=== PATIENT | male | born 1935 | race Caucasian/White ===

== ENCOUNTER 2018-01-07 17:26 | Inpatient (IN) | payer MEDICARE, OTHER ==
[~2018-01-07] VITALS: Ht 177.8 cm; Wt 60.9 kg
[~2018-01-07 17:26] MED LIST: ACE325 PO; AGGRENOX PO; CLON-352 PO; HCTZ25 PO; HYD20I IV; HYD25 PO; INSU100I SQ; INSU100V26 SC; LANI SQ; LEVO50TA80 PO; LOS50 PO; METO200T33 PO; PENI-22 PO; QUE25 PO; TAM4 PO
--- NOTE | 2018-01-07 17:38 | ER Report ---
History and Physical Time Seen By MD: 17:38 HPI/ROS CHIEF COMPLAINT: Fall HISTORY OF PRESENT ILLNESS: 82-year-old male patient presents to emergency room with complaint of a fall. Patient states that he had gotten up to go look out the door at the storm. He states that while he was walking back to his chair he is legs gave out underneath him. Patient states that he did not hurt himself and denies having any pain at this time. Patient states that he has felt weak over the last few days. He has had diarrhea today. Denies having any abdominal pain at this time. He has not taken any medication for this. He denies having any fevers, chills. He denies having any nausea. REVIEW OF SYSTEMS: Respiratory: No cough, no dyspnea. Cardiovascular: No chest pain, no palpitations. Gastrointestinal: No vomiting, no abdominal pain. Musculoskeletal: No back pain. Allergies: Coded Allergies: No Known Allergies (Verified Allergy, Mild, 08/29/10) Home Meds Reported Medications Lisinopril (LISINOPRIL) 20 Mg Tablet, 20 MG PO QDAY, TAB 01/07/18 Hydrochlorothiazide (HYDROCHLOROTHIAZIDE) 25 Mg Tablet, 1 TAB PO QDAY, TAB 01/07/18 Amlodipine Besylate (AMLODIPINE BESYLATE) 5 Mg Tablet, 1 TAB PO QDAY, TAB 01/07/18 Oxybutynin Chloride (OXYBUTYNIN CHLORIDE ER) 5 Mg Tab.er.24, 5 MG PO QDAY, TAB.SA 01/07/18 Insulin Glargine,Hum.rec.anlog (Lantus Solostar) 3 Ml Insuln.pen, 18 UNITS SQ QDAY, 0 Refills 08/13/11 Levothyroxine Sodium (Levothyroxine Sodium) 50 Mcg Tablet, 75 MCG PO QD, 0 Refills 08/13/11 Clonidine Hcl/Chlorthalidone (Clorpres 0.3/15 Tablet) 1 Tab Tablet, 2 TAB PO BID , 0 Refills 08/13/11 Acetaminophen (Tylenol) 325 Mg Tab, 650 MG PO Q4-6H Y, 0 Refills NEEDED 08/13/11 Tamsulosin Hcl (Flomax) 0.4 Mg Cap, 0.4 MG PO QDAY, 0 Refills 08/13/11 Dipyridamole/Aspirin (Aggrenox) 1 Ea Capcr, 1 CAP PO BID, 0 Refills 08/13/11 Discontinued Reported Medications Aspirin (ASPIR 81) 81 Mg Tablet.dr, 25 MG PO QDAY, TAB 01/07/18 Hydrochlorothiazide (Hydrochlorothiazide) 25 Mg Tab, 50 MG PO BID, 0 Refills 08/13/11 Past Medical/Surgical History Patient has a past medical history of CVA, hypertension, inguinal hernia, prostate problems, arthritis, hard of hearing, diabetes, hypothyroidism. Patient has surgical history of hernia repair, hip replacement, removal of cataracts. Patient has a family medical history of diabetes. Reviewed Nurses Notes: Yes Hx Smoking: No Hx Substance Use Disorder: No Hx Alcohol Use: No Constitutional Vital Sign - Last 24 Hours 01/07/18 01/07/18 01/07/18 01/07/18 17:47 17:48 17:54 17:56 Pulse 99 104 Resp 18 B/P (MAP) 122/105 (111) 122/105 102/70 (81) Pulse Ox 88 90 O2 Delivery Room Air 01/07/18 01/07/18 01/07/18 01/07/18 18:11 18:26 18:41 18:56 Pulse 92 88 95 90 Resp 31 14 Pulse Ox 87 88 90 88 01/07/18 01/07/18 01/07/18 01/07/18 19:11 19:16 19:31 19:35 Pulse 88 ??? 87 Resp 16 B/P (MAP) 113/75 (88) Pulse Ox 88 89 01/07/18 01/07/18 01/07/18 01/07/18 19:46 20:00 20:01 20:16 Pulse 87 86 95 Resp 14 16 23 B/P (MAP) 111/62 (78) Pulse Ox 90 87 93 Intake and Output 01/07/18 01/07/18 01/08/18 14:59 22:59 06:59 Output Total 20 ml Balance -20 ml Physical Exam General Appearance: The patient is alert, has no immediate need for airway protection and no current signs of toxicity. Respiratory: Chest is non tender, lungs are clear to auscultation. Cardiac: regular rate and rhythm Gastrointestinal: Abdomen is soft and slightly tender in left upper quadrant, no masses, bowel sounds normal. Musculoskeletal: Neck: Neck is supple and non tender. Extremities have full range of motion and are non tender. Skin: No rashes or lesions. DIFFERENTIAL DIAGNOSIS: After history and physical exam differential diagnosis was considered for abdominal pain including but not limited to appendicitis, cholecystitis, gastritis and urinary tract infection. Also included in the differential is intracranial hemorrhage, skull fracture. Medical Decision Making Data Points Result Diagram: 01/07/18 0000 01/07/18 0000 Laboratory Hematology Test 01/07/18 00:00 01/07/18 18:56 Red Blood Count 5.46 M/uL (4.00-5.60) Mean Corpuscular Volume 93.7 fL (80.0-96.0) Mean Corpuscular Hemoglobin 31.8 pg (26.0-33.0) Mean Corpuscular Hemoglobin Concent 33.9 g/dL (32.0-36.0) Red Cell Distribution Width 13.8 % (11.5-14.5) Mean Platelet Volume 9.0 fL (7.2-11.1) Neutrophils (%) (Auto) 91.9 % (39.4-72.5) Lymphocytes (%) (Auto) 1.6 % (17.6-49.6) Monocytes (%) (Auto) 6.3 % (4.1-12.4) Eosinophils (%) (Auto) 0.0 % (0.4-6.7) Basophils (%) (Auto) 0.2 % (0.3-1.4) Nucleated RBC Relative Count (auto) 0.0 /100WBC Neutrophils # (Auto) 20.8 K/uL (2.0-7.4) Lymphocytes # (Auto) 0.4 K/uL (1.3-3.6) Monocytes # (Auto) 1.4 K/uL (0.3-1.0) Eosinophils # (Auto) 0.0 K/uL (0.0-0.5) Basophils # (Auto) 0.1 K/uL (0.0-0.1) Nucleated RBC Absolute Count (auto) 0.00 K/uL Peripheral Blood Smear Yes Y/N Stool Occult Blood (IFOB) Positive (NEGATIVE) Stool Leukocytes, Qualitative Positive Sodium Level 141 mmol/L (137-145) Potassium Level 4.1 mmol/L (3.5-5.0) Chloride Level 99 mmol/L (98-107) Carbon Dioxide Level 21 mmol/L (22-30) Blood Urea Nitrogen 50 mg/dl (9-21) Creatinine 2.10 mg/dl (0.66-1.25) Glomerular Filtration Rate Calc 30.4 Random Glucose 155 mg/dl (75-110) Calcium Level 9.6 mg/dl (8.4-10.2) Total Bilirubin 1.7 mg/dl (0.2-1.3) Aspartate Amino Transf (AST/SGOT) 36 U/L (0-35) Alanine Aminotransferase (ALT/SGPT) 11 U/L (0-56) Alkaline Phosphatase 76 U/L (0-126) Troponin I 0.067 ng/ml Total Protein 7.8 gm/dl (6.3-8.2) Albumin 3.7 g/dl (3.5-5.0) Amylase Level 72 U/L (0-110) Lipase 46 U/L (23-300) Clostridium Difficile Toxin A & B Negative Clostridium difficile Antigen Negative Urine Color Red Urine Clarity Turbid Urine pH 5.0 pH (4.8-9.5) Urine Specific [place] 1.023 Urine Protein 100 mg/dL (NEGATIVE) Urine Glucose (UA) 50 mg/dL (NEGATIVE) Urine Ketones Trace mg/dL (NEGATIVE) Urine Blood Small (NEGATIVE) Urine Nitrite Negative (NEGATIVE) Urine Bilirubin Small (NEGATIVE) Urine Urobilinogen 4.0 mg/dL (0.2-1.9) Urine Leukocyte Esterase Small (NEGATIVE) Urine RBC 33 /HPF (0-2/HPF) Urine WBC 470 /HPF (0-5/HPF) Urine WBC Clumps Many /HPF Urine Squamous Epithelial Cells Many /LPF (NONE-FEW) Urine Renal Epithelial Cells Many /LPF (NONE-FEW) Urine Bacteria Negative /HPF (NONE-FEW) Urine Mucus Few /HPF (NONE-FEW) Chemistry Test 01/07/18 00:00 01/07/18 18:56 White Blood Count 22.6 k/uL (4.5-11.0) Red Blood Count 5.46 M/uL (4.00-5.60) Hemoglobin 17.4 g/dL (14.0-18.0) Hematocrit 51.2 % (42.0-52.0) Mean Corpuscular Volume 93.7 fL (80.0-96.0) Mean Corpuscular Hemoglobin 31.8 pg (26.0-33.0) Mean Corpuscular Hemoglobin Concent 33.9 g/dL (32.0-36.0) Red Cell Distribution Width 13.8 % (11.5-14.5) Platelet Count 288 K/uL (150-450) Mean Platelet Volume 9.0 fL (7.2-11.1) Neutrophils (%) (Auto) 91.9 % (39.4-72.5) Lymphocytes (%) (Auto) 1.6 % (17.6-49.6) Monocytes (%) (Auto) 6.3 % (4.1-12.4) Eosinophils (%) (Auto) 0.0 % (0.4-6.7) Basophils (%) (Auto) 0.2 % (0.3-1.4) Nucleated RBC Relative Count (auto) 0.0 /100WBC Neutrophils # (Auto) 20.8 K/uL (2.0-7.4) Lymphocytes # (Auto) 0.4 K/uL (1.3-3.6) Monocytes # (Auto) 1.4 K/uL (0.3-1.0) Eosinophils # (Auto) 0.0 K/uL (0.0-0.5) Basophils # (Auto) 0.1 K/uL (0.0-0.1) Nucleated RBC Absolute Count (auto) 0.00 K/uL Peripheral Blood Smear Yes Y/N Stool Occult Blood (IFOB) Positive (NEGATIVE) Stool Leukocytes, Qualitative Positive Glomerular Filtration Rate Calc 30.4 Calcium Level 9.6 mg/dl (8.4-10.2) Total Bilirubin 1.7 mg/dl (0.2-1.3) Aspartate Amino Transf (AST/SGOT) 36 U/L (0-35) Alanine Aminotransferase (ALT/SGPT) 11 U/L (0-56) Alkaline Phosphatase 76 U/L (0-126) Troponin I 0.067 ng/ml Total Protein 7.8 gm/dl (6.3-8.2) Albumin 3.7 g/dl (3.5-5.0) Amylase Level 72 U/L (0-110) Lipase 46 U/L (23-300) Clostridium Difficile Toxin A & B Negative Clostridium difficile Antigen Negative Urine Color Red Urine Clarity Turbid Urine pH 5.0 pH (4.8-9.5) Urine Specific [place] 1.023 Urine Protein 100 mg/dL (NEGATIVE) Urine Glucose (UA) 50 mg/dL (NEGATIVE) Urine Ketones Trace mg/dL (NEGATIVE) Urine Blood Small (NEGATIVE) Urine Nitrite Negative (NEGATIVE) Urine Bilirubin Small (NEGATIVE) Urine Urobilinogen 4.0 mg/dL (0.2-1.9) Urine Leukocyte Esterase Small (NEGATIVE) Urine RBC 33 /HPF (0-2/HPF) Urine WBC 470 /HPF (0-5/HPF) Urine WBC Clumps Many /HPF Urine Squamous Epithelial Cells Many /LPF (NONE-FEW) Urine Renal Epithelial Cells Many /LPF (NONE-FEW) Urine Bacteria Negative /HPF (NONE-FEW) Urine Mucus Few /HPF (NONE-FEW) Urinalysis Test 01/07/18 18:56 Urine Color Red Urine Clarity Turbid Urine pH 5.0 pH (4.8-9.5) Urine Specific [place] 1.023 Urine Protein 100 mg/dL (NEGATIVE) Urine Glucose (UA) 50 mg/dL (NEGATIVE) Urine Ketones Trace mg/dL (NEGATIVE) Urine Blood Small (NEGATIVE) Urine Nitrite Negative (NEGATIVE) Urine Bilirubin Small (NEGATIVE) Urine Urobilinogen 4.0 mg/dL (0.2-1.9) Urine Leukocyte Esterase Small (NEGATIVE) Urine RBC 33 /HPF (0-2/HPF) Urine WBC 470 /HPF (0-5/HPF) Urine WBC Clumps Many /HPF Urine Squamous Epithelial Cells Many /LPF (NONE-FEW) Urine Renal Epithelial Cells Many /LPF (NONE-FEW) Urine Bacteria Negative /HPF (NONE-FEW) Urine Mucus Few /HPF (NONE-FEW) EKG/Imaging EKG Interpretation 12 lead EKG: Rhythm: normal sinus rhythm with ventricular rate of 94 bpm [place]: Left axis deviation QRS: normal ST segments: normal Imaging CT abdomen and pelvis without contrast Indication: Fall. Lower abdominal pain. Comparison: None Available. Technique: Axial CT images are obtained through the abdomen and pelvis. Reformatted coronal and sagittal images were reviewed. IV contrast was not administered. One of the following dose optimization techniques was utilized in the performance of this exam: automated exposure control; adjustment of the mA and/ or kV according to the patient's size; or use of an iterative reconstruction technique. Specific details can be referenced in the facility's radiology CT exam operational policy. Findings: Lower lung olivas: Mild dependent atelectasis and scarring. Evaluation of the solid organs of the abdomen is limited without IV contrast. Liver: The lateral liver does show a 1.5 cm hypodense lesion with Hounsfield of 20. Liver shows no other discrete focal abnormality. Biliary: Gallbladder appears unremarkable as well as the intra and extra hepatic biliary system. Pancreas: No focal abnormality. Spleen: Calcific granuloma without other focal normality. Adrenal glands: Unremarkable. Kidneys / retroperitoneum: Bilateral calcination seen in the renal pelvis region without hydronephrosis. No discrete renal lesions. Bowel / peritoneum / mesenteries: There is pericolonic inflammation about the proximal sigmoid and the distal descending colon without focal abnormality. The colon otherwise shows no discrete focal abnormality. The cecum however is within a large right inguinal hernia. The appendix is not definitely visualized. The cecum shows no focal abnormality. The small bowel shows no focal abnormality or obstruction. Stomach is unremarkable. No indication of free air, free fluid, fluid collections or other areas of inflammation. Lymph node assessment: No pathologic adenopathy identified. Pelvic structures: The urinary bladder shows diffuse wall thickening and small foci of intraluminal air and a somewhat decompressed. The prostate appears to be enlarged without focal abnormality. Remaining pelvic structures visualized within normal limits. Also within the large right inguinal hernia is a small hydrocele and a benign calcification. There is a small left inguinal hernia containing fat. Vessels: Mild to moderate atherosclerotic calcifications seen throughout a nonaneurysmal abdominal aorta and branches. Musculoskeletal / Body wall: No acute or aggressive osseous abnormality. Mild degenerative change the spine. Right hip arthroplasty without sequelae. The posterior right oblique muscle does show a 2.5 cm lipoma. IMPRESSION: 1. There is mild inflammatory change around the distal descending and the proximal sigmoid colon consistent with colitis which is nonspecific. The colon shows no focal abnormality. 2. There is a large right inguinal hernia containing the cecum. The appendix is not definitely visualized. There is no discrete indication of acute changes. This hernia also contains a benign calcification and a small hydrocele. 3. Bilateral renal calcifications. It is difficult to tell whether these are nonobstructing calculi or vascular calcifications. 4. The urinary bladder shows circumferential wall thickening and small foci of air. This is partially decompressed. This is nonspecific and could be due to compression and recent catheterization. However the wall thickening could also represent infection or inflammatory changes. 5. Enlarged prostate causing impression to the urinary bladder. 6. A hypodense lesion in the liver which may represent a complex cyst. If the patient does have a known neoplasm, follow-up CT scan of the liver with contrast. Report Dictated By: Marvin Galarza at 01/07/2018 7:44 PM Report E-Signed By: Marvin Galarza at 01/07/2018 7:57 PM HEAD W/O CONTRAST Indication: abdominal pain Comparison: None. Technique: Noncontrast head CT vertex to the skull base obtained. One of the following dose optimization techniques was utilized in the performance of this exam: automated exposure control; adjustment of the mA and/or kV according to the patient's size; or use of an iterative reconstruction technique. Specific details can be referenced in the facility's radiology CT exam operational policy. Findings: Brain: Sánchez and white matter differentiation and cortex are maintained. Confluent areas of decreased attenuation are seen throughout the white matter both right and left superior hemispheric consistent with small vessel ischemic change. Ventricles and sulci: Pedicles and sulci are symmetric and prominent. There is no abnormal extra-axial fluid collection. Paranasal sinuses:Visualized paranasal sinuses and mastoid air cells are clear. Calvarium:Bones of the skull and skull base are intact. Orbits and soft tissues: Right and left globes and soft tissues of the head are normal. Impression: 1. No acute infarct hemorrhage mass or fracture. 2. Age-related cerebral volume loss and small vessel ischemic change. Report Dictated By: Dave Givens at 01/07/2018 7:41 PM Report E-Signed By: Dave Givens at 01/07/2018 7:46 PM ED Course/Re-evaluation ED Course Patient is admitted and examined, history and physical were obtained. Differential diagnoses were considered. On examination patient had some tenderness in the left upper quadrant. A CBC, CMP, urinalysis, EKG, troponin, CT scan of the head, CT scan of abdomen and pelvis were done. Patient had an elevated creatinine of 2.1, BUN was 50, urinalysis showed large leukocyte esterase with 482 white blood cells per high-power field, patient had a white count of 22,000 with a left shift. Troponin was indeterminate at 0.067, EKG showed a normal sinus rhythm with left axis deviation. CT scan of the head showed no acute intracranial hemorrhage. CT scan of abdomen and pelvis showed inflammation in the sigmoid colon. I discussed the findings with patient and his sons. I believe the patient should be admitted to the hospital. They were understanding. I discussed the case with Dr. Landeros, hospitalist, who agreed to accept the patient for admission. We'll go ahead and treat him with Levaquin here in the emergency room. Blood cultures and urine culture were obtained. Patient did have a bout of diarrhea here in the emergency room. That was sent down to the lab and was positive for blood, leukocyte esterase. We will culture his stools well. I discussed admission with the family and they verbalized understanding and agreement. Decision to Disposition Date: January 07, 2018 Decision to Disposition Time: 20:28 Depart Departure Latest Vital Signs Vital Signs Date Time Temp Pulse Resp B/P (MAP) Pulse Ox O2 Delivery O2 Flow Rate FiO2 01/07/18 20:16 95 23 93 01/07/18 20:00 111/62 (78) 01/07/18 17:48 Room Air Impression: Primary Impression: Colitis Additional Impressions: UTI (urinary tract infection) Acute renal failure Fall Condition: Condition Unchanged Disposition: Admitted from ER Problem Qualifiers Additional Impressions: UTI (urinary tract infection) Urinary tract infection type: acute cystitis Hematuria presence: without hematuria Qualified Codes: N30.00 - Acute cystitis without hematuria Acute renal failure Acute renal failure type: unspecified Qualified Codes: N17.9 - Acute kidney failure, unspecified Fall Encounter type: initial encounter Qualified Codes: W19.XXXA - Unspecified fall, initial encounter PATRICIO VARNER January 07, 2018 17:38
[2018-01-07] MEDS ORDERED: ASPI-1471 PO (17:58)
[2018-01-07] MEDS ORDERED: OXYB5TAB80 PO (17:59)
[2018-01-07] MEDS ORDERED: AMLO-96 PO (17:59)
[2018-01-07] MEDS ORDERED: NS(*) 0.9% 500 ML BAG 500 ML IV ONE (18:05)
[2018-01-07 18:18] LABS: PLATELET COUNT, AUTOMATED 288 K/uL (150-450)
[2018-01-07] MEDS ORDERED: IOPAMIDOL 76% 75 ML INFUS BTL 0 ML ONE (18:20)
--- NOTE | 2018-01-07 18:36 | EKG ---
[place] [facility] [place] NAME: ZOIE BERNAL : [id number] MR: [id number] V: [id number] EXAM DATE: ORDERING PHYSICIAN: PATRICIO VARNER TECHNOLOGIST: Test Reason : Blood Pressure : / mmHG Vent. Rate : 094 BPM Atrial Rate : 094 BPM P-R Int : 184 ms QRS Dur : 100 ms QT Int : 356 ms P-R-T Axes : 076 -37 060 degrees QTc Int : 445 ms Normal sinus rhythm Left axis deviation Anterior infarct , age undetermined Abnormal ECG No previous ECGs available Confirmed by SARATH RUVALCABA ([id number]) on 01/08/2018 6:29:23 AM Referred By: Confirmed By:SARATH RUVALCABA
[2018-01-07] MEDS ORDERED: LISI20TA29 PO (19:34)
[2018-01-07] MEDS ORDERED: HYDR-2966 PO (19:34)
--- NOTE | 2018-01-07 19:50 | RADIOLOGY IMAGING REPORT ---
FACILITY: [facility] PATIENT NAME: Stephen Jeffers : 1935 MR: [id number] V: [id number] EXAM DATE: ORDERING PHYSICIAN: PATRICIO VARNER TECHNOLOGIST: [place] [facility] [place] Patient: Stephen Jeffers : 1935 Visit/Account:[id number] Date of Sevice: 01/07/2018 HEAD W/O CONTRAST Indication: abdominal pain Comparison: None. Technique: Noncontrast head CT vertex to the skull base obtained. One of the following dose optimizat ion techniques was utilized in the performance of this exam: automated exposure control; adjustment o f the mA and/or kV according to the patient's size; or use of an iterative reconstruction technique. Specific details can be referenced in the facility's radiology CT exam operational policy. Findings: Brain: Sánchez and white matter differentiation and cortex are maintained. Confluent areas of decreased attenuation are seen throughout the white matter both right and left superior hemispheric consistent with small vessel ischemic change. Ventricles and sulci: Pedicles and sulci are symmetric and prominent. There is no abnormal extra-axia l fluid collection. Paranasal sinuses:Visualized paranasal sinuses and mastoid air cells are clear. Calvarium:Bones of the skull and skull base are intact. Orbits and soft tissues: Right and left globes and soft tissues of the head are normal. Impression: 1. No acute infarct hemorrhage mass or fracture. 2. Age-related cerebral volume loss and small vessel ischemic change. Report Dictated By: Dave Givens at 01/07/2018 7:41 PM Report E-Signed By: Dave Givens at 01/07/2018 7:46 PM WSN:[id number]
--- NOTE | 2018-01-07 20:01 | RADIOLOGY IMAGING REPORT ---
FACILITY: [facility] [place] PATIENT NAME: Stephen Jeffers : 1935 MR: [id number] V: [id number] EXAM DATE: ORDERING PHYSICIAN: PATRICIO VARNER TECHNOLOGIST: Location: [facility] Patient: Stephen Jeffers : 1935 Visit/Account:[id number] Date of Sevice: 01/07/2018 CT abdomen and pelvis without contrast Indication: Fall. Lower abdominal pain. Comparison: None Available. Technique: Axial CT images are obtained through the abdomen and pelvis. Reformatted coronal and sagit bernice images were reviewed. IV contrast was not administered. One of the following dose optimization techniques was utilized in the performance of this exam: auto mated exposure control; adjustment of the mA and/or kV according to the patient's size; or use of an iterative reconstruction technique. Specific details can be referenced in the facility's radiology C T exam operational policy. Findings: Lower lung olivas: Mild dependent atelectasis and scarring. Evaluation of the solid organs of the abdomen is limited without IV contrast. Liver: The lateral liver does show a 1.5 cm hypodense lesion with Hounsfield of 20. Liver shows no ot her discrete focal abnormality. Biliary: Gallbladder appears unremarkable as well as the intra and extra hepatic biliary system. Pancreas: No focal abnormality. Spleen: Calcific granuloma without other focal normality. Adrenal glands: Unremarkable. Kidneys / retroperitoneum: Bilateral calcination seen in the renal pelvis region without hydronephros is. No discrete renal lesions. Bowel / peritoneum / mesenteries: There is pericolonic inflammation about the proximal sigmoid and th e distal descending colon without focal abnormality. The colon otherwise shows no discrete focal abno rmality. The cecum however is within a large right inguinal hernia. The appendix is not definitely vi sualized. The cecum shows no focal abnormality. The small bowel shows no focal abnormality or obstruction. Stomach is unremarkable. No indication of free air, free fluid, fluid collections or other areas of inflammation. Lymph node assessment: No pathologic adenopathy identified. Pelvic structures: The urinary bladder shows diffuse wall thickening and small foci of intralumina l air and a somewhat decompressed. The prostate appears to be enlarged without focal abnormality. Rem aining pelvic structures visualized within normal limits. Also within the large right inguinal hernia is a small hydrocele and a benign calcification. There is a small left inguinal hernia containing fa t. Vessels: Mild to moderate atherosclerotic calcifications seen throughout a nonaneurysmal abdominal ao rta and branches. Musculoskeletal / Body wall: No acute or aggressive osseous abnormality. Mild degenerative change the spine. Right hip arthroplasty without sequelae. The posterior right oblique muscle does show a 2.5 c m lipoma. IMPRESSION: 1. There is mild inflammatory change around the distal descending and the proximal sigmoid colon cons istent with colitis which is nonspecific. The colon shows no focal abnormality. 2. There is a large right inguinal hernia containing the cecum. The appendix is not definitely visual ized. There is no discrete indication of acute changes. This hernia also contains a benign calcificat ion and a small hydrocele. 3. Bilateral renal calcifications. It is difficult to tell whether these are nonobstructing calculi o r vascular calcifications. 4. The urinary bladder shows circumferential wall thickening and small foci of air. This is partially decompressed. This is nonspecific and could be due to compression and recent catheterization. Howeve r the wall thickening could also represent infection or inflammatory changes. 5. Enlarged prostate causing impression to the urinary bladder. 6. A hypodense lesion in the liver which may represent a complex cyst. If the patient does have a kno wn neoplasm, follow-up CT scan of the liver with contrast. Report Dictated By: Marvin Galarza at 01/07/2018 7:44 PM Report E-Signed By: Marvin Galarza at 01/07/2018 7:57 PM WSN:[id number]
[2018-01-07] MEDS ORDERED: LEVOFLOXACIN/D5W*500 MG/100 ML 100 ML IVPB ONE (20:20)
[2018-01-07 21:22] VITALS: BP 112/53
[2018-01-07] MEDS ORDERED: INFLUENZA VIRUS VAC 0.5 ML SYR IM ONLY ONE (21:35)
--- NOTE | 2018-01-07 21:50 | History & Physical ---
History of Present Illness Chief Complaint Weakness History of Present Illness This patient presented to the emergency room complaining of generalized weakness. He reports collapsing to the ground earlier today. He has also had diarrhea over the last 24hrs. History Problems: (1) Stroke (2) Essential hypertension (3) BPH (benign prostatic hyperplasia) (4) DM2 (diabetes mellitus, type 2) (5) Hypothyroid Home Meds Reported Medications Lisinopril (LISINOPRIL) 20 Mg Tablet, 20 MG PO QDAY, TAB 01/07/18 Hydrochlorothiazide (HYDROCHLOROTHIAZIDE) 25 Mg Tablet, 1 TAB PO QDAY, TAB 01/07/18 Amlodipine Besylate (AMLODIPINE BESYLATE) 5 Mg Tablet, 1 TAB PO QDAY, TAB 01/07/18 Oxybutynin Chloride (OXYBUTYNIN CHLORIDE ER) 5 Mg Tab.er.24, 5 MG PO QDAY, TAB.SA 01/07/18 Insulin Glargine,Hum.rec.anlog (Lantus Solostar) 3 Ml Insuln.pen, 18 UNITS SQ QDAY, 0 Refills 08/13/11 Levothyroxine Sodium (Levothyroxine Sodium) 50 Mcg Tablet, 75 MCG PO QD, 0 Refills 08/13/11 Clonidine Hcl/Chlorthalidone (Clorpres 0.3/15 Tablet) 1 Tab Tablet, 2 TAB PO BID , 0 Refills 08/13/11 Acetaminophen (Tylenol) 325 Mg Tab, 650 MG PO Q4-6H Y, 0 Refills NEEDED 08/13/11 Tamsulosin Hcl (Flomax) 0.4 Mg Cap, 0.4 MG PO QDAY, 0 Refills 08/13/11 Dipyridamole/Aspirin (Aggrenox) 1 Ea Capcr, 1 CAP PO BID, 0 Refills 08/13/11 Discontinued Reported Medications Aspirin (ASPIR 81) 81 Mg Tablet.dr, 25 MG PO QDAY, TAB 01/07/18 Hydrochlorothiazide (Hydrochlorothiazide) 25 Mg Tab, 50 MG PO BID, 0 Refills 08/13/11 Allergies: Coded Allergies: No Known Allergies (Verified Allergy, Mild, 08/29/10) Hx Smoking: No Caffeine Intake: Coffee Caffeine/Cups Per Day: 1 cup coffee/day Hx Alcohol Use: No Hx Substance Use Disorder: No Review of Systems All Systems Reviewed/Normal: Yes, Except as Noted Neurological: Weakness Gastrointestinal: Diarrhea Exam Vital Signs Vital Signs Date Time Temp Pulse Resp B/P (MAP) Pulse Ox O2 Delivery O2 Flow Rate FiO2 01/07/18 21:36 92 01/07/18 21:22 98.9 97 17 Room Air Neuro: No Gross deficits Eyes: PERRLA Cardiovascular: Regular Rate and Rhythm Respiratory: Clear to Auscultation GI: Other (Tenderness in left lower quadrant.) Extremities: No Edema Integumentary: No Cyanosis Medical Decision Making Data Points Result Diagram: 01/07/18 0000 01/07/18 0000 EKG / Imaging Imaging CT abdomen/pelvis reviewed. Assessment and Plan Problems: (1) Acute colitis Assessment & Plan: He has complained of diarrhea over the last 24hrs and his CT scan shows evidence of colitis. His C. difficile test was negative. He has been started on empiric treatment with levofloxacin and metronidazole. (2) Acute renal failure Status: Acute Assessment & Plan: He does have an acute elevation of the creatinine. He has been started on IV fluids and repeat labs are ordered for the morning. (3) DM2 (diabetes mellitus, type 2) Assessment & Plan: He is on chronic treatment with Lantus, which has been placed on hold. We have placed him on sliding scale level #2. (4) BPH (benign prostatic hyperplasia) Assessment & Plan: He does straight cath at home. He is also on chronic treatment with Flomax. (5) Essential hypertension Assessment & Plan: He is on chronic treatment with amlodipine, hydrochlorothiazide, lisinopril, clonidine, and chlorthalidone. All of his medications are currently on hold. (6) Hypothyroid Assessment & Plan: He is on chronic treatment with Synthroid. Venous Thromboembolism Antithrombotics Is Pt On Any Antithrombotics?: No Exam Sepsis Risk: No Definite Risk Problem Qualifiers (1) Acute renal failure: Acute renal failure type: unspecified Qualified Codes: N17.9 - Acute kidney failure, unspecified SARATH RUVALCABA DO January 07, 2018 21:50
[2018-01-07] MEDS: D5NS(*) 1000 ML BAG 1,000 ML IV PRN (22:15)
[2018-01-07] MEDS: metroNIDAZOLE* 500MG/100ML BAG 100 ML IVPB SCH (22:15)
[2018-01-08 00:18] VITALS: BP 120/70
[2018-01-08 03:15] VITALS: BP 137/78
[2018-01-08] MEDS: metroNIDAZOLE* 500MG/100ML BAG 100 ML IVPB SCH ×3 (04:55→21:46)
[2018-01-08] MEDS: LEVOTHYROXINE SOD 0.075 MG TAB PO SCH (05:08)
[2018-01-08 06:17] LABS: PLATELET COUNT, AUTOMATED 229 K/uL (150-450)
[2018-01-08 08:31] VITALS: BP 132/91
[2018-01-08] MEDS: TAMSULOSIN HCL 0.4 MG CAP PO SCH (08:54)
[2018-01-08] MEDS: D5NS(*) 1000 ML BAG 1,000 ML IV PRN ×2 (10:21→21:46)
[2018-01-08 11:30] VITALS: BP 150/78
[2018-01-08] MEDS: LOPERAMIDE HCL 2 MG CAP PO PRN (14:02)
[2018-01-08 14:09] VITALS: Ht 177.8 cm; Wt 60.9 kg
--- NOTE | 2018-01-08 14:17 | Medical Nutrition Therapy ---
Nutrition Anthropometrics Height (Inches): 70.00 Height (Calculated Centimeters: 177.099705 Weight (Pounds): 134 Weight (Calculated Kilograms): 60.866 BMI Calculated: 19.22 Haider Nutrition Score: Probably Inadequate Haider Nutrition Risk Score: 17 Dietary Referral Nutrition Risk Factors: Significantly Underwt. Nutrition Risk Comment: Physical Findings Physical Appearance: BMI 19 Skin Appearance Skin Appearance: Edema Edema Location Modifier: Edema Location: Type of Edema: Degree of Edema: Gastrointestinal Symptoms GI Symtoms: Diarrhea, Change in Bowel Pattern Tube Present: Bowel Sounds: Recent Bowel Pattern: Diarrhea Stool Characteristics: Brown, Soft, Liquid Nutritional Diagnosis Nutritional Risk Acuity 2: Swallowing Problem Nutritional Risk Acuity 3: Nausea Past Medical History: stroke, HTN, BPH, T2DM, hypothyroidism Nutritional Acuity: 2-Moderate Nutrition Diagnosis: Altered GI Function Nutrition Etiology: Physiological Causes Nutrition Problem/Etiology/Sym: Altered GI function related to physiological causes as evidenced by acute colitis and diarrhea. Energy Requirement: 1600 ([id number]) Protein Requirement: 48 (.8 g/kg) Fluid Requirement: 1800 Diet Type: NPO/Ice Chips Only Nutrition Intervention: Incr diet as tolerated Optional Order Time?: No Nutrition Monitoring & Eval RD Patient Assessment Time: [address] Assessment Type: RD Assessment Patient Nutrition Acuity: 2-Moderate Follow Up Date: January 12, 2018 Nutritional Comment: / Pt admitted with weakness and diarrhea and will be treated for acute colitis and ARF. PMH of T2DM and stroke. 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 Notable labs include BUN 57, creatinine 1.9, glc 128-155, total pro 6.2 and alb 2.8. Currently on NPO/Ice chips and receiving insulin. Will cont to monitor clinical progression. -BRYN ALFARO January 08, 2018 14:17
[2018-01-08 15:05] VITALS: BP 157/83
--- NOTE | 2018-01-08 18:00 | Hospitalist Progress Note ---
Subjective Progress Notes Subjective 01/08: is an 82-year-old male with PMH of HTN, DM-II, CVA, BPH, Hypothyroidism who presented to the emergency room with complaint of a fall. Patient stated that he had gotten up to go look out the door at the storm. He stated that while he was walking back to his chair his legs gave out underneath him. Patient stated that he did not hurt himself and denied having any pain. Patient stated that he has had felt weak over the last few days. He has had diarrhea also. Denies having any abdominal pain, fevers, chills, or nausea. He was taking Lisinopril, HCTZ, Chlorthalidone. He was admitted with acute colitis by CT A/P and UTI. He was also dehydrated with acute kidney injury. He is off diuretics at present. He is afebrile hemodynamically stable without any significant complaint today. I discussed the case with his family. He uses straight cath for his urinary retention. Patient Complains of: Neurological: No: Confusion, Weakness, Dizziness Cardiovascular: No: Chest Pain, Palpitations Respiratory: No: Cough, Congestion, Shortness of Breath Gastrointestinal: Bowel Movement, No Nausea, No Vomiting, No Flatus Genitourinary: Urinary Incontinence, No Dysuria, No Hematuria Musculoskeletal: No: Pain, Sprain, Strain, Impaired Mobility Physical Exam Vital Signs Date Time Temp Pulse Resp B/P (MAP) Pulse Ox O2 Delivery O2 Flow Rate FiO2 01/08/18 15:05 99.0 99 18 157/83 (107) 92 Room Air 01/08/18 03:15 1.0 Intake and Output 01/09/18 06:59 Intake Total 1200 ml Output Total 200 ml Balance 1000 ml Intake Oral 200 ml IV Total 1000 ml Output Urine Total 200 ml # Voids 1 # Bowel Movements 2 General Appearance: Alert, Awake, No Acute Distress, Afebrile, Other (hard of hearing) Neuro: No Gross deficits Eyes: PERRLA ENT: Normal Cardiovascular: Normal Rhythm & Peripheral Pulses Respiratory: No Respiratory Distress GI: Soft and Non-Tender Extremities: Soft and Non Tender Integumentary: Skin Intact without Lesion / Mass Psych: Alert & Oriented X3, Appropriate Mood & Affect Result Diagram: 01/08/18 0602 01/08/18 06 Assessment and Plan Problems: (1) Acute colitis Status: Acute Assessment & Plan: He has complained of diarrhea over the last 24hrs and his CT scan shows evidence of colitis. His C. difficile test was negative. He has been started on empiric treatment with levofloxacin and metronidazole. 01/08: I will continue his current management. 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 He will require CT with contrast and he still has low GFR at present. (2) UTI (urinary tract infection) Status: Acute Assessment & Plan: 01/08: He is currently taking Levaquin for his UTI and his WBC are down from 22K to 20K I will continue his current management and use ocasio cath (3) Acute renal failure Status: Acute Assessment & Plan: He does have an acute elevation of the creatinine. He has been started on IV fluids and repeat labs are ordered for the morning. 01/08: I will continue his current management (4) BPH (benign prostatic hyperplasia) Status: Chronic Assessment & Plan: He does straight cath at home. He is also on chronic treatment with Flomax. 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 We have placed him on sliding scale level #2. (6) Essential hypertension Status: Chronic Assessment & Plan: He is on chronic treatment with amlodipine, hydrochlorothiazide, lisinopril, clonidine, and chlorthalidone. All of his medications are currently on hold. (7) Hypothyroid Status: Chronic Assessment & Plan: He is on chronic treatment with Synthroid. Condition stable Time Spent on Plan of Care: > 30 min Exam Sepsis Risk: No Definite Risk Problem Qualifiers (1) UTI (urinary tract infection): Urinary tract infection type: acute cystitis Hematuria presence: without hematuria Qualified Codes: N30.00 - Acute cystitis without hematuria (2) Acute renal failure: Acute renal failure type: unspecified Qualified Codes: N17.9 - Acute kidney failure, unspecified SOLEDAD MICHAUD MD January 08, 2018 18:00
[2018-01-08] MEDS: INSULIN HUM LISPRO 100 UN/ML 3 ML VIAL SUBQ PRN (18:38)
[2018-01-08 19:10] VITALS: BP 143/80
[2018-01-08] MEDS: LEVOFLOXACIN/D5W 250 MG/50 ML 50 ML IVPB SCH (20:39)
[2018-01-09 00:09] VITALS: BP 125/70
[2018-01-09 05:31] VITALS: BP 127/70
[2018-01-09] MEDS: LEVOTHYROXINE SOD 0.075 MG TAB PO SCH (05:34)
[2018-01-09] MEDS: metroNIDAZOLE* 500MG/100ML BAG 100 ML IVPB SCH ×3 (05:34→21:48)
[2018-01-09 06:15] LABS: PLATELET COUNT, AUTOMATED 216 K/uL (150-450)
[2018-01-09 07:40] VITALS: BP 129/69
[2018-01-09] MEDS: TAMSULOSIN HCL 0.4 MG CAP PO SCH (10:35)
[2018-01-09 10:50] VITALS: BP 128/73
[2018-01-09] MEDS ORDERED: NS(*) 0.9% 1000 ML BAG 1,000 ML IV PRN (11:45)
[2018-01-09] MEDS: INSULIN HUM LISPRO 100 UN/ML 3 ML VIAL SUBQ PRN ×2 (12:27→22:07)
--- NOTE | 2018-01-09 13:04 | Hospitalist Progress Note ---
Subjective Progress Notes Subjective is an 82-year-old male with PMH of HTN, DM-II, CVA, BPH, Hypothyroidism who presented to the emergency room with complaint of a fall. Patient stated that he had gotten up to go look out the door at the [place]. He stated that while he was walking back to his chair his legs gave out underneath him. Patient stated that he did not hurt himself and denied having any pain. Patient stated that he has had felt weak over the last few days. He has had diarrhea also. Denies having any abdominal pain, fevers, chills, or nausea. He was taking Lisinopril, HCTZ, Chlorthalidone. He was admitted with acute colitis by CT A/P and UTI. He was also dehydrated with acute kidney injury. He is off diuretics at present. He is afebrile hemodynamically stable without any significant complaint today. I discussed the case with his family. He uses straight cath for his urinary retention. 01/09: He is afebrile and hemodynamically stable without any significant complaint except hungry. His WBC down to 16K from 22K. He is on Levaquin and Flagyl. He denies any N/V/Abd. pain, he has ocasio catheter in place. Patient Complains of: Neurological: No: Confusion, Weakness, Dizziness Cardiovascular: No: Chest Pain, Palpitations Respiratory: No: Cough, Congestion, Shortness of Breath Gastrointestinal: No Nausea, No Vomiting, No Flatus, No Bowel Movement Genitourinary: Other (ocasio inplace), No Dysuria, No Hematuria Musculoskeletal: No: Pain, Sprain, Strain Physical Exam Vital Signs Date Time Temp Pulse Resp B/P (MAP) Pulse Ox O2 Delivery O2 Flow Rate FiO2 01/09/18 10:50 98.4 82 16 128/73 (91) 90 Room Air 01/08/18 03:15 1.0 General Appearance: Alert, Awake, No Acute Distress, Afebrile Neuro: No Gross deficits Eyes: PERRLA ENT: Normal, Other (hard of hearing) Cardiovascular: Normal Rhythm & Peripheral Pulses, No Edema, No JVD Respiratory: No Respiratory Distress GI: Soft and Non-Tender : Normal, No CVA Tenderness Extremities: Soft and Non Tender Integumentary: Generalized Fragile Skin Psych: Alert & Oriented X3, Appropriate Mood & Affect Result Diagram: 5/13/18 0538 01/09/1838 Assessment and Plan Problems: (1) Acute colitis Status: Acute Assessment & Plan: He has complained of diarrhea over the last 24hrs and his CT scan shows evidence of colitis. His C. difficile test was negative. He has been started on empiric treatment with levofloxacin and metronidazole. 01/08: I will continue his current management. 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 He will require CT with contrast and he still has low GFR at present. 01/09: I will change his IVF to NS at 50ml/h I will start clear liquids today and advance diet as tolerated. I will get CBC in am (2) UTI (urinary tract infection) Status: Acute Assessment & Plan: 01/08: He is currently taking Levaquin for his UTI and his WBC are down from 22K to 20K I will continue his current management and use ocasio cath 01/09: He has ocasio cath in place without any complication. He is on Levaquin and WBC are decreasing, UCX is negative to date (3) Acute renal failure Status: Acute Assessment & Plan: He does have an acute elevation of the creatinine. He has been started on IV fluids and repeat labs are ordered for the morning. 01/08: I will continue his current management 01/09: I will change IVF to NS at 50ml/h I will check BMP in am (4) BPH (benign prostatic hyperplasia) Status: Chronic Assessment & Plan: He does straight cath at home. He is also on chronic treatment with Flomax. 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 We have placed him on sliding scale level #2. (6) Essential hypertension Status: Chronic Assessment & Plan: He is on chronic treatment with amlodipine, hydrochlorothiazide, lisinopril, clonidine, and chlorthalidone. All of his medications are currently on hold. (7) Hypothyroid Status: Chronic Assessment & Plan: He is on chronic treatment with Synthroid. Time Spent on Plan of Care: > 30 min Copies to: JOLYNN HUTSON MD; OMAR CUMMINGS [employer] PRODUCTION ASSISTANT Exam Sepsis Risk: No Definite Risk Problem Qualifiers (1) UTI (urinary tract infection): Urinary tract infection type: acute cystitis Hematuria presence: without hematuria Qualified Codes: N30.00 - Acute cystitis without hematuria (2) Acute renal failure: Acute renal failure type: unspecified Qualified Codes: N17.9 - Acute kidney failure, unspecified SOLEDAD MICHAUD MD January 09, 2018 13:04
[2018-01-09 16:36] VITALS: BP 134/81
[2018-01-09] MEDS: ACETAMINOPHEN 325 MG TAB PO PRN (18:31)
[2018-01-09 19:22] VITALS: BP 118/77
[2018-01-09] MEDS: LEVOFLOXACIN/D5W 250 MG/50 ML 50 ML IVPB SCH (20:00)
[2018-01-09] MEDS ORDERED: DOXAZOSIN MESYLATE 2 MG TAB PO SCH (21:00)
[2018-01-09] MEDS: MELATONIN 3 MG TAB PO PRN (21:48)
[2018-01-10] MEDS: metroNIDAZOLE* 500MG/100ML BAG 100 ML IVPB SCH ×3 (05:53→21:36)
[2018-01-10] MEDS: LEVOTHYROXINE SOD 0.075 MG TAB PO SCH (05:53)
[2018-01-10 05:55] VITALS: BP 123/71
[2018-01-10 06:04] LABS: PLATELET COUNT, AUTOMATED 214 K/uL (150-450)
[2018-01-10 07:34] VITALS: BP 107/66
[2018-01-10] MEDS: INSULIN HUM LISPRO 100 UN/ML 3 ML VIAL SUBQ PRN ×3 (07:52→21:44)
[2018-01-10] MEDS: TAMSULOSIN HCL 0.4 MG CAP PO SCH (09:37)
--- NOTE | 2018-01-10 10:01 | Hospitalist Progress Note ---
Subjective Progress Notes Subjective He reports some minor improvements. Appetite better. No abdominal pain. Physical Exam Vital Signs Date Time Temp Pulse Resp B/P (MAP) Pulse Ox O2 Delivery O2 Flow Rate FiO2 01/10/18 07:34 91 Room Air 01/10/18 07:34 98.3 86 16 107/66 (80) 01/08/18 03:15 1.0 Intake and Output 01/11/18 06:59 Intake Total 811 ml Balance 811 ml Intake Oral 811 ml General Appearance: Alert, Awake, Other (hard of hearing) Cardiovascular: Other (Regular with distant tones) Respiratory: Clear to Auscultation GI: Soft and Non-Tender (BS present/healed RLQ scar) Extremities: Warm, Perfused Result Diagram: 01/10/18 0534 01/10/18533 Assessment and Plan Problems: (1) Acute colitis Status: Acute Assessment & Plan: He has complained of diarrhea over the last 24hrs and his CT scan shows evidence of colitis. His C. difficile test was negative. He has been started on empiric treatment with levofloxacin and metronidazole. 01/08: I will continue his current management. 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 He will require CT with contrast and he still has low GFR at present. 01/09: I will change his IVF to NS at 50ml/h I will start clear liquids today and advance diet as tolerated. I will get CBC in am 01/10: Clinically some improvements. Will advance diet. Continue IV fluids for now. (2) UTI (urinary tract infection) Status: Acute Assessment & Plan: 01/08: He is currently taking Levaquin for his UTI and his WBC are down from 22K to 20K I will continue his current management and use ocasio cath 01/09: He has ocasio cath in place without any complication. He is on Levaquin and WBC are decreasing, UCX is negative to date 01/10: WBC count continues to improve. Culture is now growing several organisms - awaiting ID and sensitivities. No changes. (3) Acute renal failure Status: Acute Assessment & Plan: He does have an acute elevation of the creatinine. He has been started on IV fluids and repeat labs are ordered for the morning. 01/08: I will continue his current management 01/09: I will change IVF to NS at 50ml/h I will check BMP in am 01/10: Creatinine continues to improve. Continue gentle IV fluids. Hold lisinopril. Watch labs. (4) BPH (benign prostatic hyperplasia) Status: Chronic Assessment & Plan: He does straight cath at home. He is also on chronic treatment with Flomax. 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 Will stop Cardura. Continue Flomax. Keep Ocasio cath in for now, but hopefully resume self-cath in near future. (5) DM2 (diabetes mellitus, type 2) Status: Chronic Assessment & Plan: He is on chronic treatment with Lantus, which has been placed on hold. We have placed him on sliding scale level #2. Glucoses have been in 90-190 range. (6) Essential hypertension Status: Chronic Assessment & Plan: He is on chronic treatment with amlodipine, hydrochlorothiazide, lisinopril, clonidine, and chlorthalidone. All of these medications are currently on hold. His BPs have been on lower side. Will monitor. (7) Hypothyroid Status: Chronic Assessment & Plan: He is on chronic treatment with Synthroid. Exam Sepsis Risk: No Definite Risk Problem Qualifiers (1) UTI (urinary tract infection): Urinary tract infection type: acute cystitis Hematuria presence: without hematuria Qualified Codes: N30.00 - Acute cystitis without hematuria (2) Acute renal failure: Acute renal failure type: unspecified Qualified Codes: N17.9 - Acute kidney failure, unspecified KOTA ALTMAN MD January 10, 2018 10:01
[2018-01-10 11:37] VITALS: BP 120/68
[2018-01-10 16:07] VITALS: BP 126/74
[2018-01-10] MEDS: ACETAMINOPHEN 325 MG TAB PO PRN (18:27)
[2018-01-10 19:29] VITALS: BP 137/74
[2018-01-10] MEDS: LEVOFLOXACIN/D5W 250 MG/50 ML 50 ML IVPB SCH (20:25)
[2018-01-11 03:38] VITALS: BP 114/67
[2018-01-11] MEDS: LEVOTHYROXINE SOD 0.075 MG TAB PO SCH (05:26)
[2018-01-11] MEDS: metroNIDAZOLE* 500MG/100ML BAG 100 ML IVPB SCH ×3 (05:26→21:44)
[2018-01-11 05:59] LABS: PLATELET COUNT, AUTOMATED 215 K/uL (150-450)
[2018-01-11 07:28] VITALS: BP 153/96
[2018-01-11] MEDS: TAMSULOSIN HCL 0.4 MG CAP PO SCH (09:44)
[2018-01-11 10:59] VITALS: BP 138/77
[2018-01-11] MEDS ORDERED: IOPAMIDOL 76% 150 ML INFUS BTL 150 ML ONE (13:33)
--- NOTE | 2018-01-11 14:38 | Hospitalist Progress Note ---
Subjective Progress Notes Subjective is an 82-year-old male with PMH of HTN, DM-II, CVA, BPH, Hypothyroidism who presented to the emergency room with complaint of a fall. Patient stated that he had gotten up to go look out the door at the storm. He stated that while he was walking back to his chair his legs gave out underneath him. Patient stated that he did not hurt himself and denied having any pain. Patient stated that he has had felt weak over the last few days. He has had diarrhea also. Denies having any abdominal pain, fevers, chills, or nausea. He was taking Lisinopril, HCTZ, Chlorthalidone. He was admitted with acute colitis by CT A/P and UTI. He was also dehydrated with acute kidney injury. He is off diuretics at present. He is afebrile hemodynamically stable without any significant complaint today. I discussed the case with his family. He uses straight cath for his urinary retention. 01/09: He is afebrile and hemodynamically stable without any significant complaint except hungry. His WBC down to 16K from 22K. He is on Levaquin and Flagyl. He denies any N/V/Abd. pain, he has ocasio catheter in place. 01/11: Today he is afebrile and hemodynamically stable with c/o salty taste in his mouth and has low appetite. His BP is moderately elevated 153/96. His Cardura was stopped yesterday. His UCX grew multiple organism. His WBC are gradually improving to 12.6. He denies any abdominal pain. His B/Cr is 30/1.4 with GFR 48.5ml/min Patient Complains of: Neurological: No: Confusion, Weakness, Dizziness Cardiovascular: No: Chest Pain, Palpitations Respiratory: Other, No: Cough, Congestion, Shortness of Breath Gastrointestinal: Nausea, No Vomiting, No Flatus, No Bowel Movement Genitourinary: Other (ocasio in place), No Dysuria, No Hematuria Musculoskeletal: No: Pain, Sprain, Strain Physical Exam Vital Signs Date Time Temp Pulse Resp B/P (MAP) Pulse Ox O2 Delivery O2 Flow Rate FiO2 01/11/18 10:59 99.0 96 16 138/77 (97) 91 Room Air 01/08/18 03:15 1.0 Intake and Output 01/12/18 06:59 Intake Total 480 ml Balance 480 ml Intake Oral 480 ml General Appearance: Alert, Awake, No Acute Distress, Afebrile Neuro: No Gross deficits Eyes: PERRLA ENT: Normal Cardiovascular: Normal Rhythm & Peripheral Pulses, No Edema, No JVD Respiratory: No Respiratory Distress GI: Soft and Non-Tender : Normal Extremities: Soft and Non Tender Integumentary: Generalized Fragile Skin Psych: Alert & Oriented X3, Appropriate Mood & Affect Result Diagram: 01/11/1852601/11/18526 Assessment and Plan Problems: (1) Acute colitis Status: Resolved Assessment & Plan: He has complained of diarrhea over the last 24hrs and his CT scan shows evidence of colitis. His C. difficile test was negative. He has been started on empiric treatment with levofloxacin and metronidazole. 01/08: I will continue his current management. 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 He will require CT with contrast and he still has low GFR at present. 01/09: I will change his IVF to NS at 50ml/h I will start clear liquids today and advance diet as tolerated. I will get CBC in am 01/10: Clinically some improvements. Will advance diet. Continue IV fluids for now. 01/11: Significant improvement and patient is tolerating the full diet I will continue Levaquin and Flagyl (2) UTI (urinary tract infection) Status: Acute Assessment & Plan: 01/08: He is currently taking Levaquin for his UTI and his WBC are down from 22K to 20K I will continue his current management and use ocasio cath 01/09: He has ocasio cath in place without any complication. He is on Levaquin and WBC are decreasing, UCX is negative to date 01/10: WBC count continues to improve. Culture is now growing several organisms - awaiting ID and sensitivities. No changes. 01/11: His UCX grew multiple organism and there is a possibility that he could have tiny EVF (Enterovesicular Fistula) I will get CT cystogram of the abd/pelvis I discussed the case with Dr. Dinero, his Urologist and agreed to pursue further with CT cystogram. I will continue the antibiotics. I will get CBC in am (3) Acute renal failure Status: Acute Assessment & Plan: He does have an acute elevation of the creatinine. He has been started on IV fluids and repeat labs are ordered for the morning. 01/08: I will continue his current management 01/09: I will change IVF to NS at 50ml/h I will check BMP in am 01/10: Creatinine continues to improve. Continue gentle IV fluids. Hold lisinopril. Watch labs. 01/11: gradual renal improvement with current Cr 1.4 and GFR 48.5 I will stop his IVF and encourage oral fluids I will get BMP in am (4) BPH (benign prostatic hyperplasia) Status: Chronic Assessment & Plan: He does straight cath at home. He is also on chronic treatment with Flomax. 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 Will stop Cardura. Continue Flomax. Keep Ocasio cath in for now, but hopefully resume self-cath in near future. 01/11: I will restart his Cardura for elevating BP and also for his BPH (5) DM2 (diabetes mellitus, type 2) Status: Chronic Assessment & Plan: He is on chronic treatment with Lantus, which has been placed on hold. We have placed him on sliding scale level #2. Glucoses have been in 90-190 range. (6) Essential hypertension Status: Chronic Assessment & Plan: He is on chronic treatment with amlodipine, hydrochlorothiazide, lisinopril, clonidine, and chlorthalidone. All of these medications are currently on hold. His BPs have been on lower side. Will monitor. 01/11: I will restart his Lisinopril 20mg po qd for elevating BP I will also restart Cardura 2mg po q hs (7) Hypothyroid Status: Chronic Assessment & Plan: He is on chronic treatment with Synthroid. Time Spent on Plan of Care: > 30 min Copies to: JOLYNN DINERO MD; OMAR CUMMINGS RAFTSMAN Exam Sepsis Risk: No Definite Risk Problem Qualifiers (1) UTI (urinary tract infection): Urinary tract infection type: acute cystitis Hematuria presence: without hematuria Qualified Codes: N30.00 - Acute cystitis without hematuria (2) Acute renal failure: Acute renal failure type: unspecified Qualified Codes: N17.9 - Acute kidney failure, unspecified SOLEDAD MICHAUD MD January 11, 2018 14:38
--- NOTE | 2018-01-11 16:52 | RADIOLOGY IMAGING REPORT ---
[place] [facility] [place] NAME: Stephen Jeffers : 1935 MR: [id number] V: [id number] EXAM DATE: ORDERING PHYSICIAN: SOLEDAD MICHAUD TECHNOLOGIST: Location: [facility] Patient: Stephen Jeffers : 1935 Visit/Account:[id number] Date of Sevice: 01/11/2018 Exam type: PELVIS W CONTRAST History: r/o fistula Comparison: CT abdomen pelvis January 07, 2018. TECHNIQUE: Multiple axial images were obtained through the pelvis following instillation of 140 mL of Isovue-370 into the urinary bladder through the patient's existing Clark catheter under gravity guid ance. Dose Lowering Technique One of the following dose optimization techniques was utilized in the performance of this exam: Autom ated exposure control; adjustment of the mA and/or kV according to the patient's size; or use of an i terative reconstruction technique. Specific details can be referenced in the facility's radiology C T exam operational policy. Findings: There are extensive artifacts from the bladder contrast. There was no demonstration of extravesicula r extravasation of the contrast. Small amount of air is noted within the bladder which may be relate d to the Clark catheter insertion inflammation surrounding the descending colon is again noted with thickening of the adjacent wall. T he sigmoid colon not ideally evaluated due to the extensive pelvic artifacts. Large right inguinal hernia containing fat: cecum and small bowel again noted. There is a moderate-s ized left inguinal hernia containing fat and sigmoid colon. Prostate is enlarged and impinges upon the floor the bladder. A small amount of abdominal ascites is noted Extensive vascular calcifications are seen throughout the pelvis. There are numerous artifacts also present from a right hip arthroplasty. There is an old fracture through the inferior pubic ramus on the left IMPRESSION: 1. There is no evidence of extraluminal extravasation of contrast from the bladder to suggest a fist bere Inflammatory change and thickening seen surrounding the descending colon some are to the prior study. Sigmoid colon not ideally evaluated due to the artifacts from the bladder contrast Large right inguinal hernia containing fat cecum and small bowel again noted Moderate-sized left inguinal hernia containing fat and sigmoid colon Small amount of abdominal ascites Additional chronic findings as described Report Dictated By: Neli Moon MD at 01/11/2018 4:40 PM Report E-Signed By: Neli Moon MD at 01/11/2018 4:49 PM WSN:[id number]
[2018-01-11] MEDS: LEVOFLOXACIN/D5W 250 MG/50 ML 50 ML IVPB SCH (20:35)
[2018-01-11] MEDS: DOXAZOSIN MESYLATE 2 MG TAB PO SCH (20:35)
[2018-01-11 20:39] VITALS: BP 143/77
[2018-01-11] MEDS: ACETAMINOPHEN 325 MG TAB PO PRN (21:44)
[2018-01-11] MEDS: MELATONIN 3 MG TAB PO PRN (21:44)
[2018-01-12 03:05] VITALS: BP 152/97
[2018-01-12] MEDS: LEVOTHYROXINE SOD 0.075 MG TAB PO SCH (05:45)
[2018-01-12] MEDS: metroNIDAZOLE* 500MG/100ML BAG 100 ML IVPB SCH ×3 (05:45→21:43)
[2018-01-12 07:21] VITALS: BP 148/95
[2018-01-12 08:39] LABS: PLATELET COUNT, AUTOMATED 239 K/uL (150-450)
[2018-01-12] MEDS: TAMSULOSIN HCL 0.4 MG CAP PO SCH (09:17)
[2018-01-12] MEDS: LISINOPRIL 20 MG TAB PO SCH (09:17)
--- NOTE | 2018-01-12 10:08 | Hospitalist Progress Note ---
Subjective Progress Notes Subjective is an 82-year-old male with PMH of HTN, DM-II, CVA, BPH, Hypothyroidism who presented to the emergency room with complaint of a fall. Patient stated that he had gotten up to go look out the door at the storm. He stated that while he was walking back to his chair his legs gave out underneath him. Patient stated that he did not hurt himself and denied having any pain. Patient stated that he has had felt weak over the last few days. He has had diarrhea also. Denies having any abdominal pain, fevers, chills, or nausea. He was taking Lisinopril, HCTZ, Chlorthalidone. He was admitted with acute colitis by CT A/P and UTI. He was also dehydrated with acute kidney injury. He is off diuretics at present. He is afebrile hemodynamically stable without any significant complaint today. I discussed the case with his family. He uses straight cath for his urinary retention. 01/09: He is afebrile and hemodynamically stable without any significant complaint except hungry. His WBC down to 16K from 22K. He is on Levaquin and Flagyl. He denies any N/V/Abd. pain, he has ocasio catheter in place. 01/11: Today he is afebrile and hemodynamically stable with c/o salty taste in his mouth and has low appetite. His BP is moderately elevated 153/96. His Cardura was stopped yesterday. His UCX grew multiple organism. His WBC are gradually improving to 12.6. He denies any abdominal pain. His B/Cr is 30/1.4 with GFR 48.5ml/min 01/12: Today patient is afebrile and hemodynamically stable without any significant complaint. His hard of hearing. He has had CT -Cystogram and I will discuss with Dr. Dinero regarding possible EVF. He is on Levaquin and Flagyl. His BP is still high. Patient Complains of: Neurological: No: Confusion, Weakness, Dizziness Cardiovascular: No: Chest Pain, Palpitations Respiratory: No: Cough, Congestion, Shortness of Breath Gastrointestinal: Bowel Movement, No Nausea, No Vomiting Genitourinary: No Dysuria, No Hematuria Musculoskeletal: No: Pain, Sprain, Strain, Impaired Mobility Physical Exam Vital Signs Date Time Temp Pulse Resp B/P (MAP) Pulse Ox O2 Delivery O2 Flow Rate FiO2 01/12/18 07:25 90 Room Air 01/12/18 07:21 99.3 88 16 148/95 (112) Intake and Output 01/13/18 07:00 Intake Total 345 ml Balance 345 ml Intake Oral 240 ml IV Total 105 ml General Appearance: Alert, Awake, No Acute Distress, Afebrile Neuro: No Gross deficits Eyes: PERRLA ENT: Normal Neck: No Masses Cardiovascular: Normal Rhythm & Peripheral Pulses, No Edema, No JVD Respiratory: No Respiratory Distress GI: Soft and Non-Tender Extremities: Soft and Non Tender Integumentary: Generalized Fragile Skin Psych: Alert & Oriented X3, Appropriate Mood & Affect Result Diagram: 01/12/18 0834 01/12/18 0834 Assessment and Plan Problems: (1) Acute colitis Status: Resolved Assessment & Plan: He has complained of diarrhea over the last 24hrs and his CT scan shows evidence of colitis. His C. difficile test was negative. He has been started on empiric treatment with levofloxacin and metronidazole. 01/08: I will continue his current management. 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 He will require CT with contrast and he still has low GFR at present. 01/09: I will change his IVF to NS at 50ml/h I will start clear liquids today and advance diet as tolerated. I will get CBC in am 01/10: Clinically some improvements. Will advance diet. Continue IV fluids for now. 01/11: Significant improvement and patient is tolerating the full diet I will continue Levaquin and Flagyl, Day#5 01/12: I will continue the current management, Antibiotics Day#6 He is tolerating the diet (2) UTI (urinary tract infection) Status: Acute Assessment & Plan: 01/08: He is currently taking Levaquin for his UTI and his WBC are down from 22K to 20K I will continue his current management and use ocasio cath 01/09: He has ocasio cath in place without any complication. He is on Levaquin and WBC are decreasing, UCX is negative to date 01/10: WBC count continues to improve. Culture is now growing several organisms - awaiting ID and sensitivities. No changes. 01/11: His UCX grew multiple organism and there is a possibility that he could have tiny EVF (Enterovesicular Fistula) I will get CT cystogram of the abd/pelvis I discussed the case with Dr. Dinero, his Urologist and agreed to pursue further with CT cystogram. I will continue the antibiotics. I will get CBC in am 01/12: His WBC are slightly elevated to 13.1 despite antibiotics and he is growing multiple organism in his UCX. I will continue his antibiotics Day#6 I will discuss his CT-Cystogram with Dr. Dinero for possible EVF (3) Acute renal failure Status: Acute Assessment & Plan: He does have an acute elevation of the creatinine. He has been started on IV fluids and repeat labs are ordered for the morning. 01/08: I will continue his current management 01/09: I will change IVF to NS at 50ml/h I will check BMP in am 01/10: Creatinine continues to improve. Continue gentle IV fluids. Hold lisinopril. Watch labs. 01/11: gradual renal improvement with current Cr 1.4 and GFR 48.5 I will stop his IVF and encourage oral fluids I will get BMP in am 01/12: His BUN/Cr 23/1.2 with GFR 58ml/min is getting better and he is off IVF. (4) BPH (benign prostatic hyperplasia) Status: Chronic Assessment & Plan: He does straight cath at home. He is also on chronic treatment with Flomax. 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 Will stop Cardura. Continue Flomax. Keep Ocasio cath in for now, but hopefully resume self-cath in near future. 01/11: I will restart his Cardura for elevating BP and also for his BPH 01/12: I will continue his Cardura 2mg po q hs for his BP and BPH (5) DM2 (diabetes mellitus, type 2) Status: Chronic Assessment & Plan: He is on chronic treatment with Lantus, which has been placed on hold. We have placed him on sliding scale level #2. Glucoses have been in 90-190 range. (6) Essential hypertension Status: Chronic Assessment & Plan: He is on chronic treatment with amlodipine, hydrochlorothiazide, lisinopril, clonidine, and chlorthalidone. All of these medications are currently on hold. His BPs have been on lower side. Will monitor. 01/11: I will restart his Lisinopril 20mg po qd for elevating BP I will also restart Cardura 2mg po q hs (7) Hypothyroid Status: Chronic Assessment & Plan: He is on chronic treatment with Synthroid. Time Spent on Plan of Care: > 30 min Copies to: JOLYNN DINERO MD; OMAR CUMMINGS SWITCHBOARD INSPECTOR Exam Sepsis Risk: No Definite Risk Problem Qualifiers (1) UTI (urinary tract infection): Urinary tract infection type: acute cystitis Hematuria presence: without hematuria Qualified Codes: N30.00 - Acute cystitis without hematuria (2) Acute renal failure: Acute renal failure type: unspecified Qualified Codes: N17.9 - Acute kidney failure, unspecified SOLEDAD MICHAUD MD January 12, 2018 10:08
--- NOTE | 2018-01-12 10:23 | Medical Nutrition Therapy ---
Nutrition Anthropometrics Height (Inches): 70.00 Height (Calculated Centimeters: 177.074000 Weight (Pounds): 134 Weight (Calculated Kilograms): 60.866 BMI Calculated: 19.22 Haider Nutrition Score: Probably Inadequate Haider Nutrition Risk Score: 16 Dietary Referral Nutrition Risk Factors: Significantly Underwt. Nutrition Risk Comment: Physical Findings Physical Appearance: BMI 19 Skin Appearance Skin Appearance: Edema Edema Location Modifier: Edema Location: Type of Edema: Degree of Edema: Gastrointestinal Symptoms GI Symtoms: Change in Bowel Pattern Tube Present: Bowel Sounds: Recent Bowel Pattern: Diarrhea Stool Characteristics: Brown, Soft, Liquid Nutritional Diagnosis Nutritional Risk Acuity 2: Swallowing Problem (per nursing report ) Nutritional Risk Acuity 3: Nausea Past Medical History: stroke, HTN, BPH, T2DM, hypothyroidism Nutritional Acuity: 2-Moderate Nutrition Diagnosis: Altered GI Function Nutrition Etiology: Physiological Causes Nutrition Problem/Etiology/Sym: Altered GI function related to physiological causes as evidenced by acute colitis and diarrhea. Energy Requirement: 1600 ([id number]) Protein Requirement: 48 (.8 g/kg) Fluid Requirement: 1800 Diet Type: Diet as Tolerated STACY/REG Nutrition Intervention: Cont diet as ordered, Encourage intake, Between meal supplement Optional Order Time?: No Additional Diet Restrictions: OFFER NUTR SUPPLEMENT LUNCH MEAL ONLY Nutrition Monitoring & Eval RD Patient Assessment Time: [address] Assessment Type: RD Re-Assessment Patient Nutrition Acuity: 2-Moderate Follow Up Date: January 16, 2018 Nutritional Comment: 01/08 Pt admitted with weakness and diarrhea and will be treated for acute colitis and ARF. PMH of T2DM and stroke. Nursing charts notes potential swallowing difficulty, so recommend ENGINEERING ASSOCIATE eval. Notable labs include BUN 57, creatinine 1.9, glc 128-155, total pro 6.2 and alb 2.8. Currently on NPO/Ice chips and receiving insulin. Will cont to monitor clinical progression. -EK 01/11 Diet advanced to regular. Intake averge 51% of small to regular portions. Pt cont Dx ARF but Creatinine has improved to 1.4, BUN 30. Will add protein powder in lunch meal only as that is the meal where pt apprears to eat the least amount. Goal is for pt to consume adeuqate protein but not excessive. Alb 2.4. Nursing reporteing no swallowing issues observed. Pt still may benefit from ST eval. Will cont to monitor. SANTINO FAY January 12, 2018 10:23
[2018-01-12 11:01] VITALS: BP 139/80
[2018-01-12] MEDS: ACETAMINOPHEN 325 MG TAB PO PRN ×2 (11:21→20:35)
[2018-01-12] MEDS: CARBAMIDE PEROX 6.5% OT SOLN RIGHT EAR SCH ×2 (11:21→20:36)
[2018-01-12 15:12] VITALS: BP 153/97
[2018-01-12] MEDS: INSULIN HUM LISPRO 100 UN/ML 3 ML VIAL SUBQ PRN (16:46)
[2018-01-12] MEDS: LEVOFLOXACIN/D5W 250 MG/50 ML 50 ML IVPB SCH (20:25)
[2018-01-12 20:31] VITALS: BP 163/97
[2018-01-12] MEDS: MELATONIN 3 MG TAB PO PRN (20:35)
[2018-01-12] MEDS: DOXAZOSIN MESYLATE 2 MG TAB PO SCH (20:35)
[2018-01-12 23:30] VITALS: BP 145/80
[2018-01-13 03:00] VITALS: BP 164/87
[2018-01-13] MEDS: ACETAMINOPHEN 325 MG TAB PO PRN ×2 (03:08→21:13)
[2018-01-13] MEDS: metroNIDAZOLE* 500MG/100ML BAG 100 ML IVPB SCH ×2 (05:25→06:04)
[2018-01-13] MEDS: LEVOTHYROXINE SOD 0.075 MG TAB PO SCH (05:25)
[2018-01-13 06:02] LABS: PLATELET COUNT, AUTOMATED 235 K/uL (150-450)
[2018-01-13 07:34] VITALS: BP 141/106
--- NOTE | 2018-01-13 07:42 | General Surgery Consultation ---
History of Present Illness Requesting Physician Dr. Guerrero, Hospitalist Service Reason for Consult Question of colovesical fistula Chief Complaint Fevers, weakness History of Present Illness 82yo male is admitted to the hospitalist service and has been in the hospital for the last 5 days. He has been diagnosed with colitis in his distal descending colon and proximal sigmoid colon and he has been on levofloxacin and metronidazole to treat this. He has been afebrile and although his WBC is coming down he has been exhibiting mild fevers in the last 24 hours. His bladder wall is also thickened with gas in his bladder but he has a ocasio catheter in place. Urine cultures have grown klebsiella, group B strep, and another species of strep. Because of the colitis, bladder wall thickening, and the multiorganism UTI, I have been asked to evaluate the patient for possible colovesical fistula. The patient has straight cathed his bladder daily for years. His main complaint during my visit is pain at the tip of his penis that he blames on the current indwelling catheter. He has no abdominal pain. History Problems: (1) Essential hypertension Status: Chronic (2) Hypothyroid Status: Chronic (3) BPH (benign prostatic hyperplasia) Status: Chronic (4) DM2 (diabetes mellitus, type 2) Status: Chronic Home Meds Reported Medications Lisinopril (LISINOPRIL) 20 Mg Tablet, 20 MG PO QDAY, TAB 01/07/18 Hydrochlorothiazide (HYDROCHLOROTHIAZIDE) 25 Mg Tablet, 1 TAB PO QDAY, TAB 01/07/18 Amlodipine Besylate (AMLODIPINE BESYLATE) 5 Mg Tablet, 1 TAB PO QDAY, TAB 01/07/18 Oxybutynin Chloride (OXYBUTYNIN CHLORIDE ER) 5 Mg Tab.er.24, 5 MG PO QDAY, TAB.SA 01/07/18 Insulin Glargine,Hum.rec.anlog (Lantus Solostar) 3 Ml Insuln.pen, 18 UNITS SQ QDAY, 0 Refills 08/13/11 Levothyroxine Sodium (Levothyroxine Sodium) 50 Mcg Tablet, 75 MCG PO QD, 0 Refills 08/13/11 Clonidine Hcl/Chlorthalidone (Clorpres 0.3/15 Tablet) 1 Tab Tablet, 2 TAB PO BID , 0 Refills 08/13/11 Acetaminophen (Tylenol) 325 Mg Tab, 650 MG PO Q4-6H Y, 0 Refills NEEDED 08/13/11 Tamsulosin Hcl (Flomax) 0.4 Mg Cap, 0.4 MG PO QDAY, 0 Refills 08/13/11 Dipyridamole/Aspirin (Aggrenox) 1 Ea Capcr, 1 CAP PO BID, 0 Refills 08/13/11 Discontinued Reported Medications Aspirin (ASPIR 81) 81 Mg Tablet.dr, 25 MG PO QDAY, TAB 01/07/18 Hydrochlorothiazide (Hydrochlorothiazide) 25 Mg Tab, 50 MG PO BID, 0 Refills 08/13/11 Allergies: Coded Allergies: No Known Allergies (Verified Allergy, Mild, 08/29/10) Review of Systems All Systems Reviewed/Normal: Yes, Except as Noted Constitutional: Fever Exam Vital Signs Vital Signs Date Time Temp Pulse Resp B/P (MAP) Pulse Ox O2 Delivery O2 Flow Rate FiO2 01/13/18 03:00 99.2 93 16 164/87 (112) 90 Room Air General Appearance: Alert, Awake, No Acute Distress, Afebrile GI: Abd Soft and Non-Tender Extremities: Warm, Perfused Medical Decision Making Data Points Result Diagram: 01/13/1828 01/13/18527 Assessment and Plan Problems: (1) Acute colitis Status: Resolved Assessment & Plan: 01/13/18: I do not see evidence of a colovesical fistula. The patient's abdominal exam is benign. I have reviewed the CT performed on admission and there is a clear fat plane between the patient's colon and his bladder, and a CT pelvis with bladder contrast didn't reveal any obvious extravasation or other signs of fistula (although fistulas can be small and difficult to demonstrate radiographically). The most convincing evidence to me is the clear fat plane between the patient's bladder and colon on the admission CT as well as his benign exam. His colitis seems to be responding to the antibiotics, sensitivities are also c/w his current coverage. I suspect the multiorganism UTI and bladder wall thickening is due to recurrent bladder instrumentation. Would recommend removal of current catheter and he can resume straight cath regimen. Please call me if I can answer any further questions regarding this patient. (2) UTI (urinary tract infection) Status: Acute Assessment & Plan: Managed by hospitalist service and Dr. Dinero with Urology. Condition Stable. Time Spent: < 30 min Venous Thromboembolism Antithrombotics Is Pt On Any Antithrombotics?: No Problem Qualifiers (1) UTI (urinary tract infection): Urinary tract infection type: acute cystitis Hematuria presence: without hematuria Qualified Codes: N30.00 - Acute cystitis without hematuria SARATH WILLARD MD January 13, 2018 07:42
[2018-01-13] MEDS: amLODIPine BESYL(*) 5 MG TAB PO SCH (08:26)
[2018-01-13] MEDS: LISINOPRIL 20 MG TAB PO SCH (08:26)
[2018-01-13] MEDS: TAMSULOSIN HCL 0.4 MG CAP PO SCH (08:26)
[2018-01-13] MEDS: CARBAMIDE PEROX 6.5% OT SOLN RIGHT EAR SCH ×2 (08:26→21:14)
[2018-01-13 11:01] VITALS: BP 137/77
[2018-01-13] MEDS: LOPERAMIDE HCL 2 MG CAP PO PRN ×2 (11:05→14:52)
--- NOTE | 2018-01-13 11:32 | Hospitalist Progress Note ---
Subjective Progress Notes Subjective He reports overall improvement from admission. He is feeling much stronger. He had a temperature of 100.9 overnight. Physical Exam Vital Signs Date Time Temp Pulse Resp B/P (MAP) Pulse Ox O2 Delivery O2 Flow Rate FiO2 01/13/18 11:01 98.3 86 18 137/77 (97) 93 Room Air Intake and Output 01/14/18 07:00 Intake Total 110 ml Output Total 100 ml Balance 10 ml Intake Oral 110 ml Output Urine Total 100 ml # Voids 1 # Bowel Movements 3 General Appearance: Alert, Awake, No Acute Distress GI: Soft and Non-Tender Result Diagram: 01/13/1852701/13/18527 Assessment and Plan Problems: (1) Decreased oral intake Status: Acute Assessment & Plan: Secondary to poor taste in his mouth since admission. Likely, secondary to the metronidazole, which has been stopped. Will follow symptoms and intake. (2) UTI (urinary tract infection) Status: Acute Assessment & Plan: He presented with leukocytosis, pyuria and is growing Klebsiella pneumonia, group B strep and strep parasanguinus. It is complicated by the fact that he self catheterizes himself multiple times a day related to BPH (followed by Dr. Dinero). His Clark catheter was removed today and he will resume self catheterization. He is now just on Levofloxacin. He did have a low grade fever overnight, but his WBC is trending down. (3) Acute colitis Status: Resolved Assessment & Plan: He presented with diarrhea over 24hrs and his CT scan shows evidence of colitis. His C. difficile test was negative. He had been started on empiric treatment with levofloxacin and metronidazole. He is having less frequent BM. (4) Acute renal failure Status: Acute Assessment & Plan: He presented with a creatinine of 2.1 secondary to dehydration. Creatinine today is 1.1, which is his baseline. (5) BPH (benign prostatic hyperplasia) Status: Chronic Assessment & Plan: He does straight cath at home. He is also on chronic treatment with Flomax and Cardura. (6) DM2 (diabetes mellitus, type 2) Status: Chronic Assessment & Plan: He is on chronic treatment with Lantus, which has been placed on hold. We have placed him on sliding scale level #2. Glucoses have been in 134-207 range. Will restart Lantus, but half dosing today. (7) Essential hypertension Status: Chronic Assessment & Plan: He is on chronic treatment with amlodipine, Cardura, hydrochlorothiazide, lisinopril, clonidine, and chlorthalidone. Amlodipine, Cardura and lisinopril have been restarted. (8) Hypothyroid Status: Chronic Assessment & Plan: He is on chronic treatment with Synthroid. Exam Sepsis Risk: No Definite Risk Problem Qualifiers (1) UTI (urinary tract infection): Urinary tract infection type: acute cystitis Hematuria presence: without hematuria Qualified Codes: N30.00 - Acute cystitis without hematuria (2) Acute renal failure: Acute renal failure type: unspecified Qualified Codes: N17.9 - Acute kidney failure, unspecified MARTIN MOREL MD January 13, 2018 11:32
[2018-01-13] MEDS: INSULIN GLARGINE 100 U/ML 3 ML PEN SUBQ SCH (11:59)
[2018-01-13] MEDS: INSULIN HUM LISPRO 100 UN/ML 3 ML VIAL SUBQ PRN ×2 (12:00→17:27)
[2018-01-13 14:53] VITALS: BP 139/77
[2018-01-13] MEDS: LACTOBACILLUS ACIDOPHILUS TAB PO SCH (17:27)
[2018-01-13] MEDS ORDERED: LEVOFLOXACIN 500 MG TAB PO SCH (20:00)
[2018-01-13 21:09] VITALS: BP 161/91
[2018-01-13] MEDS: MELATONIN 3 MG TAB PO PRN (21:13)
[2018-01-13] MEDS: DOXAZOSIN MESYLATE 2 MG TAB PO SCH (21:13)
[2018-01-13 23:12] VITALS: BP 154/84
[2018-01-14 03:11] VITALS: BP 154/75
[2018-01-14] MEDS: ACETAMINOPHEN 325 MG TAB PO PRN (05:24)
[2018-01-14] MEDS: LEVOTHYROXINE SOD 0.075 MG TAB PO SCH (05:24)
[2018-01-14 05:55] LABS: PLATELET COUNT, AUTOMATED 246 K/uL (150-450)
[2018-01-14 08:11] VITALS: BP 140/79
[2018-01-14] MEDS: TAMSULOSIN HCL 0.4 MG CAP PO SCH (08:44)
[2018-01-14] MEDS: CARBAMIDE PEROX 6.5% OT SOLN RIGHT EAR SCH (08:44)
[2018-01-14] MEDS: INSULIN GLARGINE 100 U/ML 3 ML PEN SUBQ SCH (08:44)
[2018-01-14] MEDS: LACTOBACILLUS ACIDOPHILUS TAB PO SCH (08:44)
[2018-01-14] MEDS: LISINOPRIL 20 MG TAB PO SCH (08:45)
[2018-01-14] MEDS: amLODIPine BESYL(*) 5 MG TAB PO SCH (08:45)
[2018-01-14] MEDS ORDERED: LEVO250T41 PO (09:36)
--- NOTE | 2018-01-14 09:42 | Hospitalist Depart ---
Discharge Summary Reason for Hosp/Final Diag: (1) Acute colitis Status: Resolved Hospital Course & Plan: He presented with diarrhea over 24hrs and his CT scan shows evidence of colitis. His C. difficile test was negative. He was on empiric treatment with levofloxacin and metronidazole. The metronidazole has since been discontinued. he will complete a course of levofloxacin. (2) UTI (urinary tract infection) Status: Acute Hospital Course & Plan: His urine culture did show growth with three organisms , all of which are sensitive to levofloxacin. He will complete a full course of oral treatment. (3) Acute renal failure Status: Acute Hospital Course & Plan: His creatinine was initially elevated, but has since improved with IV hydration. (4) BPH (benign prostatic hyperplasia) Status: Chronic Hospital Course & Plan: He does straight cath at home. He is also on chronic treatment with Flomax and Cardura. (5) DM2 (diabetes mellitus, type 2) Status: Chronic Hospital Course & Plan: He is on chronic treatment with Lantus. (6) Essential hypertension Status: Chronic Hospital Course & Plan: He is on chronic treatment with amlodipine, Cardura, hydrochlorothiazide, lisinopril, clonidine, and chlorthalidone. The clonidine and chlorthalidone have been discontinued. (7) Hypothyroid Status: Chronic Hospital Course & Plan: He is on chronic treatment with Synthroid. Departure Latest Vital Signs Vital Signs 01/14/18 01/14/18 08:11 08:52 Temp 98.6 Pulse 84 Resp 18 B/P (MAP) 140/79 (99) Pulse Ox 91 O2 Delivery Room Air Weight (Pounds): 134 Weight (Ounces): 3.0 Result Diagram: 01/14/1851901/14/18519 Condition: Improved Follow-Up Labs: Finger Sticks Discharge Instructions Home Meds Active Scripts Levofloxacin 250 Mg Tab (LEVOFLOXACIN 250 MG TAB) 250 Mg Tablet, 250 MG PO QDAY , #2 TAB Prov:SARATH RUVALCABA DO 01/14/18 Reported Medications Lisinopril (LISINOPRIL) 20 Mg Tablet, 20 MG PO QDAY, TAB 01/07/18 Hydrochlorothiazide (HYDROCHLOROTHIAZIDE) 25 Mg Tablet, 1 TAB PO QDAY, TAB 01/07/18 Amlodipine Besylate (AMLODIPINE BESYLATE) 5 Mg Tablet, 1 TAB PO QDAY, TAB 01/07/18 Oxybutynin Chloride (OXYBUTYNIN CHLORIDE ER) 5 Mg Tab.er.24, 5 MG PO QDAY, TAB.SA 01/07/18 Insulin Glargine,Hum.rec.anlog (Lantus Solostar) 3 Ml Insuln.pen, 18 UNITS SQ QDAY, 0 Refills 08/13/11 Levothyroxine Sodium (Levothyroxine Sodium) 50 Mcg Tablet, 75 MCG PO QD, 0 Refills 08/13/11 Acetaminophen (Tylenol) 325 Mg Tab, 650 MG PO Q4-6H Y, 0 Refills NEEDED 08/13/11 Tamsulosin Hcl (Flomax) 0.4 Mg Cap, 0.4 MG PO QDAY, 0 Refills 08/13/11 Dipyridamole/Aspirin (Aggrenox) 1 Ea Capcr, 1 CAP PO BID, 0 Refills 08/13/11 Discontinued Reported Medications Clonidine Hcl/Chlorthalidone (Clorpres 0.3/15 Tablet) 1 Tab Tablet, 2 TAB PO BID , 0 Refills 08/13/11 Aspirin (ASPIR 81) 81 Mg Tablet.dr, 25 MG PO QDAY, TAB 01/07/18 Hydrochlorothiazide (Hydrochlorothiazide) 25 Mg Tab, 50 MG PO BID, 0 Refills 08/13/11 Diet: Diabetic Activity: As Tolerated Copies to: OMAR CUMMINGS Venous Thromboembolism Antithrombotics Is Pt On Any Antithrombotics?: No Problem Qualifiers (1) UTI (urinary tract infection): Urinary tract infection type: acute cystitis Hematuria presence: without hematuria Qualified Codes: N30.00 - Acute cystitis without hematuria (2) Acute renal failure: Acute renal failure type: unspecified Qualified Codes: N17.9 - Acute kidney failure, unspecified SARATH RUVALCABA DO January 14, 2018 09:42
== END 2018-01-14 11:20 | disposition home or self-care (01) | DRG 699 ==
LOC: ER 17:42 → MED 20:24
PROVIDERS: ADMIT Family Medicine; ATTEND Family Medicine
DX: T83.511A Infection and inflammatory reaction due to indwelling urethral catheter, initial encounter (principal); N30.00 Acute cystitis without hematuria; N17.9 Acute kidney failure, unspecified; B96.1 Klebsiella pneumoniae [K. pneumoniae] as the cause of diseases classified elsewhere; B95.1 Streptococcus, group B, as the cause of diseases classified elsewhere; B95.4 Other streptococcus as the cause of diseases classified elsewhere; K52.9 Noninfective gastroenteritis and colitis, unspecified; N40.0 Benign prostatic hyperplasia without lower urinary tract symptoms; E11.9 Type 2 diabetes mellitus without complications; E03.9 Hypothyroidism, unspecified; K76.89 Other specified diseases of liver; W18.30XA Fall on same level, unspecified, initial encounter; Y92.009 Unspecified place in unspecified non-institutional (private) residence as the place of occurrence of the external cause; Y99.8 Other external cause status; Z86.73 Personal history of transient ischemic attack (TIA), and cerebral infarction without residual deficits; Z79.4 Long term (current) use of insulin; Z87.891 Personal history of nicotine dependence; Z96.641 Presence of right artificial hip joint
CPT/HCPCS: 36415; 36416; 70450; 72193; 74176; 81001; 82040; 82150; 82247; 82274; 82310; 82374; 82435; 82565; 82947; 82948; 83630; 83690; 84075; 84132; 84155; 84295; 84450; 84460; 84484; 84520; 85025; 87040; 87045; 87077; 87088; 87177; 87186; 87324; 87449; 93005; 97162; 99284; J1815; J1956; J3490; J7030; J7040; J7042; Q9967